=== PATIENT | male | born 1995 | race Caucasian/White ===

== ENCOUNTER 2020-07-27 12:25 | Emergency (ER) | payer MEDICAID ==
[~2020-07-27] VITALS: Ht 180.3 cm; Wt 91.2 kg
[2020-07-27 12:35] VITALS: BP_SYST 155
[2020-07-27 14:19] VITALS: BP_SYST 141
== END 2020-07-27 14:19 | disposition home or self-care (01) ==
LOC: SED 12:25
DX: S29.011A Strain of muscle and tendon of front wall of thorax, initial encounter (principal); S29.012A Strain of muscle and tendon of back wall of thorax, initial encounter; X50.3XXA Overexertion from repetitive movements, initial encounter; Y93.89 Activity, other specified; Y92.89 Other specified places as the place of occurrence of the external cause; Y99.8 Other external cause status
CPT/HCPCS: 71045; 93005; 99283